=== PATIENT | male | born 1970 ===

== ENCOUNTER 2022-12-05 06:00 | Outpatient (RCR) | payer BC, SELFPAY | END 2022-12-07 23:59 | disposition home or self-care (01) | LOC: TPT 06:00 | PROVIDERS: Visit Provider Surgery | DX: M43.17 Spondylolisthesis, lumbosacral region (principal); M54.16 Radiculopathy, lumbar region; M43.06 Spondylolysis, lumbar region | CPT/HCPCS: 97110; 97162 ==

== ENCOUNTER 2022-12-08 06:00 | Outpatient (RCR) | payer BC, SELFPAY | END 2023-01-06 23:59 | disposition home or self-care (01) | LOC: TPT 06:00 | PROVIDERS: Visit Provider Surgery | DX: M43.17 Spondylolisthesis, lumbosacral region (principal); M54.16 Radiculopathy, lumbar region | CPT/HCPCS: 97032; 97110 ==

== ENCOUNTER 2023-01-07 06:00 | Outpatient (RCR) | payer BC, SELFPAY | END 2023-02-06 23:59 | disposition home or self-care (01) | LOC: TPT 06:00 | PROVIDERS: Visit Provider Surgery | DX: M43.17 Spondylolisthesis, lumbosacral region (principal); M54.17 Radiculopathy, lumbosacral region; M43.06 Spondylolysis, lumbar region | CPT/HCPCS: 97032; 97110 ==